=== PATIENT | male | born 1945 | race Caucasian/White ===

== ENCOUNTER 2017-05-08 08:00 | Outpatient (RCR) | payer MEDICARE, OTHER, SELFPAY ==
[2017-04-08 01:23] VITALS: BP 108/62; BP 146/60
[2017-05-08 10:41] VITALS: BP 104/60; BP 162/76
--- NOTE | 2017-05-08 10:42 | CR.ITP_ITS ---
Exercise - Initial Assessment - Stages of Change Stages of Change:: Action - Stress Test Date: 01/21/17 - Exercise Prescription Mode:: Treadmill, Rower, Airdyne, NuStep Angina with exercise?: No - Hypertension Do any of the following apply?: Yes, Medication - Intervention Home Exercise/Activity Goal:: Moderate Exercise 30 min/day x 5 days/wk - Education Goals:: Warm-up, RPE JOHN Scale, S/S, Safe Exercise, Self-Monitoring - Exercise Program Goals Exercise Program Goals: Aerobic Activity >30 min Exercise - 30-day Assessment - Stages of Change Stages of Change:: Action - Exercise Prescription Mode:: Treadmill, Rower, Airdyne, NuStep Frequency (x/week): 3 Duration:: 35 METs - Progression: 0.5-1 MET as tolerated: 3.6 Target Heart Rate:: 113-120 Max HR 90 - Intervention Home Exercise/Activity Goal:: Moderate Exercise 30 min/day x 5 days/wk - Education Goals:: Warm-up, RPE JOHN Scale, S/S, Safe Exercise, Self-Monitoring - Exercise Program Goals Exercise Program Goals: Aerobic Activity >30 min Exercise - 60-Day Assessment - Visit Date of Eval: 04/05/17 - Stages of Change Stages of Change:: Action - Exercise Prescription Mode:: Treadmill, Airdyne, NuStep Frequency (x/week): 3 Duration:: 30 min METs: 5.5 Target Heart Rate:: 113-120 Max HR 114 - Hypertension Medication Changes:: No - Intervention Home Exercise/Activity Goal:: Moderate Exercise 30 min/day x 5 days/wk - Education Goals:: Warm-up, RPE JOHN Scale, S/S, Safe Exercise, Self-Monitoring Exercise - 90-Day Assessment - Visit Date of Eval: 05/08/17 Session #:: 31 - Stages of Change Stages of Change:: Action - Exercise Prescription Mode:: Treadmill, Airdyne, NuStep Frequency (x/week): 3 Duration:: 30 min METs: 8.0 Target Heart Rate:: 120-128 max HR 117 - Hypertension Resting Blood Pressure:: 104/60 Peak Exercise Blood Pressure:: 162/76 Medication Changes:: No - Intervention Home Exercise/Activity Goal:: Moderate Exercise 30 min/day x 5 days/wk - Education Goals:: Warm-up, RPE JOHN Scale, S/S, Safe Exercise, Self-Monitoring Exercise - Final/Discharge - Hypertension Do any of the following apply?: Yes, Medication Nutrition - Initial Assessment - Program Goals Nutrition Program Goals: LDL <70. Total Cholesterol <200. HDL >45. Triglycerides <150. HgbA1C <7%. BMI <25 - Stages of Change Stages of Change:: Action - Diabetes Diabetes:: No Non-Insulin Dependent?: No - Weight Management Body Fat %:: 29.58 Total Score:: 3 - Intervention Referral to dietitian:: No Referral to Diabetic Clinic:: No Will attend diet classes:: No - Education Gave educational materials for:: Healthy eating Nutrition - 30-Day Assessment - Program Goals Nutrition Program Goals: LDL <70. Total Cholesterol <200. HDL >45. Triglycerides <150. HgbA1C <7%. BMI <25 - Stages of Change Stages of Change:: Action - Lipids Has the patient seen the dietitian?: No - Diabetes Diabetes:: No Non-Insulin Dependent?: No - Intervention Referral to dietitian:: No Referral to Diabetic Clinic:: No Will attend diet classes:: No - Education Attended class for:: Healthy eating Nutrition - 60-Day Assessment - Program Goals Nutrition Program Goals: LDL <70. Total Cholesterol <200. HDL >45. Triglycerides <150. HgbA1C <7%. BMI <25 - Visit Date of Eval: 04/05/17 - Stages of Change Stages of Change:: Action - Lipids Has the patient seen the dietitian?: No - Diabetes Diabetes:: No Non-Insulin Dependent?: No - Intervention Referral to dietitian:: No Referral to Diabetic Clinic:: No Will attend diet classes:: No - Education Attended class for:: Healthy eating Nutrition - 90-Day Assessment - Program Goals Nutrition Program Goals: LDL <70. Total Cholesterol <200. HDL >45. Triglycerides <150. HgbA1C <7%. BMI <25 - Visit Date of Eval: 05/08/17 - Stages of Change Stages of Change:: Action - Lipids Has the patient seen the dietitian?: No - Diabetes Diabetes:: No Non-Insulin Dependent?: No - Weight Management Weight:: 96.388 kg - Intervention Referral to dietitian:: No Referral to Diabetic Clinic:: No Will attend diet classes:: No - Education Attended class for:: Healthy eating Nutrition - Final Assessment - Program Goals Nutrition Program Goals: LDL <70. Total Cholesterol <200. HDL >45. Triglycerides <150. HgbA1C <7%. BMI <25 - Diabetes Diabetes:: No Non-Insulin Dependent?: No - Weight Management Body Fat %:: 29.58 Total Score:: 3 - Intervention Referral to dietitian:: No Referral to Diabetic Clinic:: No Will attend diet classes:: No Tobacco - Initial Assessment - Program Goals Tobacco Program Goals: Complete smoking cessation. Attend education classes. Improve Knowledge Test score - Stage of Change Stages of Change:: Action - Learning Barriers Learning Barriers: Vision - wears corrective lenses, Ready to Learn Total Score:: 9 - Family Support Do you have family support?: Yes - Tobacco Use Tobacco Use: Non-smoker - former smoker quit back in 1975. Do you use smokeless tobacco?: No - Intervention Smoking Cessation Referral:: No Individual Education/Counseling:: No Education Schedule Given:: Yes - Education Gave educational material for:: Coronary artery disease, Risk factors, Sexuality , Medical compliance, Cardiac A&P, Angina signs & symptoms Tobacco - 30-Day Assessment - Program Goals Tobacco Program Goals: Complete smoking cessation. Attend education classes. Improve Knowledge Test score - Stage of Change Stages of Change:: Action - Learning Barriers Learning Barriers: Participates in education - Family Support Do you have family support?: Yes - Tobacco Use Tobacco Use: Non-smoker Do you use smokeless tobacco?: No - Intervention Smoking Cessation Referral:: No Individual Education/Counseling:: No Education Schedule Given:: Yes - Education Attended class for:: Coronary artery disease, Risk factors, Sexuality, Medical compliance, Cardiac A&P, Angina signs & symptoms Tobacco - 60-Day Assessment - Program Goals Tobacco Program Goals: Complete smoking cessation. Attend education classes. Improve Knowledge Test score - Stage of Change Stages of Change:: Action - Learning Barriers Learning Barriers: Participates in education - Family Support Do you have family support?: Yes - Tobacco Use Tobacco Use: Non-smoker Do you use smokeless tobacco?: No - Intervention Smoking Cessation Referral:: No Individual Education/Counseling:: No Education Schedule Given:: Yes - Education Attended class for:: Coronary artery disease, Risk factors, Sexuality, Medical compliance, Cardiac A&P, Angina signs & symptoms Tobacco - 90-Day Assessment - Program Goals Tobacco Program Goals: Complete smoking cessation. Attend education classes. Improve Knowledge Test score - Stage of Change Stages of Change:: Action - Learning Barriers Learning Barriers: Participates in education - Family Support Do you have family support?: Yes - Tobacco Use Tobacco Use: Non-smoker Do you use smokeless tobacco?: No - Intervention Smoking Cessation Referral:: No Individual Education/Counseling:: No Education Schedule Given:: Yes - Education Attended class for:: Coronary artery disease, Risk factors, Sexuality, Medical compliance, Cardiac A&P, Angina signs & symptoms Tobacco - Final Assessment - Program Goals Tobacco Program Goals: Complete smoking cessation. Attend education classes. Improve Knowledge Test score - Learning Barriers Cardiac Knowledge Test Score:: 9 - Family Support Do you have family support?: Yes - Tobacco Use Tobacco Use: Non-smoker Do you use smokeless tobacco?: No - Intervention Smoking Cessation Referral:: No Individual Education/Counseling:: No Education Schedule Given:: Yes Psychosocial - Initial Assess - Target Goals Target Goals: Assess presence or absence of depression. Using a valid screening tool, maximizes coping skills. Positive support system - Stages of Change Stages of Change:: Action - Psychosocial Test Tool Used:: HANDS Depression Questionnaire Tests Completed: SF - 36 survey completed, Mood Scale Test Self-Efficacy Score:: 9 - Intervention PS - Interventions: Yes Attend Stress Management Classes, Yes Uses Stress Management Skills, No Referral to Mental Health, No Referral to [facility] Case Management, No Referral to Physician - Patient/Program Goal Preventative Medication(s):: Aspirin, JACOB inhibitor, Clopidogrel, Beta srinivas, Statin/lipid - Assistive Devices Assistive Devices:: None Fall Risk Assessed:: Yes Psychosocial - 30-Day Assess - Target Goals Target Goals: Assess presence or absence of depression. Using a valid screening tool, maximizes coping skills. Positive support system - Stages of Change Stages of Change:: Action - Psychosocial Test Tool Used:: HANDS Depression Questionnaire Self-Efficacy Score:: 9 - Patient/Program Goal Preventative Medication(s):: Aspirin, JACOB inhibitor, Clopidogrel, Beta srinivas, Statin/lipid - Assistive Devices Assistive Devices:: None Fall Risk Assessed:: Yes Psychosocial - 60-Day Assess - Target Goals Target Goals: Assess presence or absence of depression. Using a valid screening tool, maximizes coping skills. Positive support system - Stages of Change Stages of Change:: Action - Psychosocial Test Tool Used:: HANDS Depression Questionnaire Self-Efficacy Score:: 9 - Patient/Program Goal Preventative Medication(s):: Aspirin, JACOB inhibitor, Clopidogrel, Beta srinivas, Statin/lipid - Assistive Devices Assistive Devices:: None Fall Risk Assessed:: Yes Psychosocial - 90-Day Assess - Target Goals Target Goals: Assess presence or absence of depression. Using a valid screening tool, maximizes coping skills. Positive support system - Stages of Change Stages of Change:: Action - Psychosocial Test Tool Used:: HANDS Depression Questionnaire Self-Efficacy Score:: 9 - Intervention PS - Interventions: Yes Attend Stress Management Classes, Yes Uses Stress Management Skills, No Referral to Mental Health, No Referral to [facility] Case Management, No Referral to Physician - Education Attended classes for:: Coping techniques, Signs & symptoms of depression, Stress management, Relaxation techniques - Patient/Program Goal Preventative Medication(s):: Aspirin, JACOB inhibitor, Clopidogrel, Beta srinivas, Statin/lipid - Assistive Devices Assistive Devices:: None Fall Risk Assessed:: Yes Psychosocial - Final Assessmen - Target Goals Target Goals: Assess presence or absence of depression. Using a valid screening tool, maximizes coping skills. Positive support system - Psychosocial Test Tool Used:: HANDS Depression Questionnaire Tests Completed: SF - 36 survey completed, Mood Scale Test Self-Efficacy Score:: 9 - Patient/Program Goal Preventative Medication(s):: Aspirin, JACOB inhibitor, Clopidogrel, Beta srinivas, Statin/lipid - Assistive Devices Assistive Devices:: None Fall Risk Assessed:: Yes Patient Health Questionnaire 90-Day Re-eval Assessment 1. Little interest or pleasure in doing things: Not at all 2. Feeling down, depressed, or hopeless: Not at all 3. Trouble falling or staying asleep, or sleeping too much: Not at all 4. Feeling tired or having little energy: Not at all 5. Poor appetite or overeating: Not at all 6. Feeling bad about yourself -- or that you are a failure or have let yourself or your family down: Not at all 7. Trouble concentrating on things, such as reading the newspaper or watching television: Not at all 8. Moving or speaking so slowly that other people could have noticed. Or the opposite - being so fidgety or restless that you have been moving around a lot more than usual: Not at all 9. Thoughts that you would be better off , or of hurting yourself in some way: Not at all Total Score: 0 Self-Efficacy 90-Day Re-eval Assessment We would like to know how confident you are in doing certain activities. Please select your confidence level for:: Select your confidence level for the following using the scale 1-10 where 1 is not at all confident and 10 is totally confident. Your score is the average of all 6 responses. Fatigue: How confident are you that you can keep the fatigue caused by your disease from interfering with the things you want to do? Select Number: 10 Physical Discomfort or Pain: How confident are you that you can keep the physical discomfort or pain of your disease from interfering with the things you want to do? Select Number: 10 Emotional Distress: How confident are you that you can keep the emotional distress caused by your disease from interfering with the things you want to do? Select Number: 10 Other Symptoms or Health Problems: How confident are you that you can keep other symptoms or health problems from interfering with the things you want to do? Select Number: 10 Different Tasks and Activities: How confident are you that you can do the different tasks and activities needed to manage your health condition so as to reduce your need to see a doctor? Select Number: 10 Medication: How confident are you that you can do things other than just taking medication to reduce how much your illness affects your everyday life? Select Number: 10 Total Score:: 10 Cardiac Rehabilitation Goals - Cardiac Rehab Goals Cardiac Rehabilitation Goals: 1. Maintain the individual as the primary focus of care. 2. To improve the patient's quality of life. 3. Identification of cardiac risk factors and provide cardiac risk factor management. 4. Enhance the psychosocial status of the patient. 5. Reconditioning enough to allow the patient to resume customary activities. 6. Control symptoms of cardiac disease - Scale Scale for measuring improvement of personal goals: Enter appropriate number in Comments. 2 = Unchanged. 3 = Slightly Better. 4 = Moderate Improvement. 5 = Met my Goal 90-Day Re-eval Assessment Personal Goals: Discharge Reassessment: Participate in home exercise program - exercising more, Met Goal, Improve muscle strength and endurance - Increased intensity, Goal Met, Improve diet and eating habits (eat healthier) - lifestyle change, eating healthier. Goal Met, Control risk factors (learn risk factor modification) - Ongoing-Learning process.
== END 2017-05-08 23:59 ==
LOC: CR 08:00
PROVIDERS: Family Provider Internal Medicine; PCP Internal Medicine; Visit Provider Internal Medicine Cardiovascular Disease
DX: Z95.5 Presence of coronary angioplasty implant and graft (principal); I25.10 Atherosclerotic heart disease of native coronary artery without angina pectoris; E78.5 Hyperlipidemia, unspecified
CPT/HCPCS: 93798

== ENCOUNTER 2017-05-20 08:00 | Outpatient (RCR) | payer MEDICARE, OTHER, SELFPAY ==
[2017-01-25] VITALS: BP 138/66
[2017-01-25 08:00] VITALS: BP 132/73
[2017-02-14 10:58] VITALS: BMI 29.5
[2017-05-09 00:47] VITALS: BP 104/60; BP 162/76
== END 2017-05-20 09:30 | disposition home or self-care (01) ==
LOC: CR 08:00
PROVIDERS: Family Provider Internal Medicine; PCP Internal Medicine; Visit Provider Internal Medicine Cardiovascular Disease
DX: Z95.5 Presence of coronary angioplasty implant and graft (principal); I25.10 Atherosclerotic heart disease of native coronary artery without angina pectoris; E78.5 Hyperlipidemia, unspecified
CPT/HCPCS: 93798

== ENCOUNTER → 2020-04-27 06:27 | Outpatient (CLI) | payer MEDICARE, SELFPAY ==
[2020-04-19 08:24] VITALS: BMI 30.5
--- NOTE | 2020-04-27 12:54 | STRESSREP ---
Stress Test Report Exercise myocardial perfusion stress test. 75-year-old male with a history of coronary artery disease. Medications aspirin, Plavix, Lipitor. Stress protocol: Resting EKG demonstrates normal sinus rhythm with a rate of 70 bpm normal intervals are noted resting blood pressure is 142/72 mmHg. The patient exercised according to regular Kavin protocol for a total duration of 8 minutes patient completed 2 minutes into stage III of the Kavin protocol. The maximum heart rate attained was 142 bpm which was 96% of maximum predicted heart rate the maximum workload was 10.1 metabolic equivalents. At rest there were no ST or T wave changes noted suggest ischemia at peak exercise upsloping ST changes were noted with no meet the criteria for ischemia. No clinical angina was noted. The peak blood pressure was 182/70 mmHg which was an appropriate rise for exercise. The test was terminated due to leg fatigue. No arrhythmias were noted. Myocardial perfusion protocol. 14.6 mCi of technetium 99m sestamibi was injected at rest. The patient exercised according to regular Kavin protocol for 8 minutes and at peak exercise 44.8 mCi of technetium 99m sestamibi was injected stress images were obtained stress and rest images were reconstructed and compared in the short axis vertical long horizontal long axis. Gated images were also obtained Perfusion SPECT analysis: Review of the stress images demonstrate normal uptake noted in all areas of the myocardium the resting images similarly demonstrate normal uptake of tracer noted in all areas of the myocardium. No areas of reversibility are noted suggest ischemia no previous infarct is noted. Gated SPECT analysis: The gated ejection fraction is 79%. Conclusion: Normal exercise myocardial perfusion stress test with no evidence of ischemia at a high workload. Preserved ejection fraction.
== END ==
PROVIDERS: PCP Internal Medicine; Referring Provider Internal Medicine Cardiovascular Disease; Visit Provider Internal Medicine Cardiovascular Disease
DX: I25.10 Atherosclerotic heart disease of native coronary artery without angina pectoris (principal); Z95.5 Presence of coronary angioplasty implant and graft
CPT/HCPCS: 78452; 93017; A9500; A4216

== ENCOUNTER 2020-05-21 09:01 | Inpatient (IN) | payer MEDICARE, SELFPAY ==
[2020-04-19 08:24] VITALS: BMI 30.5
[2020-05-21] VITALS (10 sets, daily range): BP systolic 124–145; BP diastolic 67–72; PULSE 66–76; RESP 17–18; TEMP 36.9–38.2; O2SAT 91–97; BMI 29.2
--- NOTE | 2020-05-21 09:29 | EKG12_ITS ---
Test Reason : SOB Blood Pressure : / mmHG Vent. Rate : 074 BPM Atrial Rate : 074 BPM P-R Int : 172 ms QRS Dur : 092 ms QT Int : 396 ms P-R-T Axes : 055 030 027 degrees QTc Int : 439 ms Normal sinus rhythm Normal ECG Confirmed by ROSEANNA SEN, WILLIAM ([id number]), general expeditor CHERYL GARCIA ([id number]) on 05/23/2020 11:51:29 A M Referred By: BHAVIN Confirmed By:EFRAIN CONDON MD
--- NOTE | 2020-05-21 09:29 | RAD_ITS ---
STUDY: X-RAY CHEST REASON FOR EXAM: Male, 75 years old. Worsening shortness of breath TECHNIQUE: 2 AP portable views COMPARISON: 01/23/2017 FINDINGS: EKG leads overlie the chest Lungs are mildly hyperexpanded, when compared to the previous study, there has been development of interstitial opacifications in the mid and lower lung chambers. This could be due to multifocal pneumonitis, pulmonary vascular congestion or Covid pneumonia. Stable granulomatous calcifications, stable 2.3 center calcification in the left paravertebral region Normal size heart. Normal mediastinum and vinay. Normal visualized pulmonary arteries. Normal visualized aortic arch and descending thoracic aorta. There are diffuse degenerative changes of the visualized thoracic spine. There is degenerative osteoarthritis of the bilateral shoulders. There is no demonstrated abnormality of the visualized soft tissue structures of the upper abdomen. RAD/Chest 1 View (Portable) IMPRESSION: Moderately hyperexpanded lungs with chronic interstitial changes, and superimposed interstitial opacifications in the mid and lower lung chambers. Differential as described above. Electronically Signed: Brock Manuel MD at 11:31 EST , Service support ,
[2020-05-21] MEDS: Acetaminophen 325 MG Tablet 650 MG PO (09:51)
[2020-05-21] MEDS: 0.9% Normal Saline 1,000 ML 150 ML IV (09:52)
[2020-05-21 10:12] LABS: Absolute Lymphocyte Count 0.59 X10^3/uL (0.83-4.51); Absolute Neutrophil Count 4.7 X10^3/uL (2.0-7.7); Basophil# 0.01 X10^3/uL; Basophil% 0.2 % (0-1); Hematocrit 39.4 % (40-54); Hemoglobin 13.7 g/dL (13.0-16.5); Lymphocyte # 0.59 X10^3/ul (4.0); Lymphocyte % 9.9 % (19-41); Mean Corp Hgb Conc 34.8 g/dL (32-36); Mean Corpuscular Hgb 31.8 pg (27.0-32.0); Mean Corpuscular Volume 91.4 fL (80-94); Mean Platelet Vol. 11.4 fl (6.2-12.0); Monocyte# 0.62 X10^3/uL; Monocyte% 10.4 % (0-10); NRBC Flagged by Analyzer 0 % (0-5); Neutrophil # 4.69 X10^3/uL (2.7-7.7); POSITIVE DIFFERENTIAL YES; Platelet Count 142 K/mm3 (150-450); RBC Distribution Width CV 11.9 % (11.6-14.6); RBC Distribution Width SD 40.2 fl (35.1-43.9); Red Blood Count 4.31 M/mm3 (4.6-6.2); White Blood Count 5.9 K/mm3 (4.4-11.0)
[2020-05-21 10:31] LABS: Anion Gap 6 (5-15); BUN 20 mg/dL (7-18); BUN/Creat Ratio 20.5 RATIO (10-20); Calcium,Total 8.4 mg/dL (8.5-10.1); Chloride 99 mmol/L (98-107); Creatinine, Serum 0.98 mg/dL (0.70-1.30); EST Glomerular Filtration Rate 80 mL/min (>60); Est Glom Filt Rate - Afr Amer 97 mL/min (>60); Glucose 97 mg/dL (74-106); Potassium 3.8 mmol/L (3.5-5.1); Sodium Level 133 mmol/L (136-145)
[2020-05-21 10:34] LABS: Differential Indicated SCAN CRITERIA MET
[2020-05-21 10:47] LABS: Lactic Acid 1.5 mmol/L (0.4-1.9)
[2020-05-21 11:01] LABS: D-Dimer Quantitative (DVT/PE) 0.67 FEU/ug/m (0.27-0.49)
[2020-05-21 11:04] LABS: Differential Comment SCANNED
--- NOTE | 2020-05-21 12:28 | ED.DCSUM_ITS ---
- ER Visit Summary Date of Service: 05/21/20 Chief Complaint: [Shortness of breath and fever] History of Present Illness: The patient is a 75 M [presents to the emergency department complaint of fever and shortness of breath. Patient started having symptoms on May 12. He was diagnosed with COVID-19 on May 15. Patient increasingly short of breath since yesterday. No significant cough. He denies any chest pain. He does complain of exertional dyspnea. Patient does complain of nausea, headache, and body aches. Patient has history of coronary artery disease as well as hypertension.] Physical Examination: [HEENT-PERRLA, EOMI. Cranial nerves II through XII grossly intact. TMs clear. Mucous membranes moist. No adenopathy. Cardiovascular-regular rate and rhythm without murmur or ectopy Lungs-clear to auscultation, chest wall stable without crepitus or subcu emp hysema Abdomen-normoactive bowel sounds, soft, nontender, no rebound or rigidity, no peritoneal signs. Extremities-intact ?4, normal range of motion, normal pulses, atraumatic] Test Results: [EKG obtained arrival shows sinus rhythm with a ventricular rate of 74 bpm with no acute ST segment changes. CBC with differential showed a white count 5.9, hemoglobin 13.7, hematocrit 39, plates 142. Chemistries unremarkable. Troponin less than 0.015. D-dimer was 0.67 and when corrected for age is considered normal. Chest x-ray 1 view obtained read by myself as bilateral infiltrates. Radiology in agreement.] Emergency Department Course and Treatment: [IV line established on arrival. Patient placed on surveillance system monitor. Patient was ambulated and with ambulation pulse ox drops to 88%.] Patient placed on 2 L nasal cannula O2. Treatment Plan: [Admit] Disposition: [Admit] Impression: [Covid pneumonia Hypoxemia] This note was generated with [employer] dictation software. It may contain incorrect words, spelling, and punctuation that were not noted in review of the chart prior to signing ED Disposition - Plan for ED Patient: Referrals: Bg Gold MD [Primary Care Provider] -
[2020-05-21 13:23] LABS: AST(SGOT) 50 U/L (15-37); Alanine Aminotransfer ALT/SGPT 54 U/L (16-61); Albumin, Serum 3.1 g/dL (3.2-5.0); Alkaline Phosphatase 51 U/L (45-117); Bilirubin, Direct 0.17 mg/dL (0.00-0.30); Globulin 4.1 g/dL (2.2-4.2); Protein, Total 7.2 g/dL (6.4-8.2)
--- NOTE | 2020-05-21 13:40 | CASEMGMT ---
LYNN MIMS ASSESSMENT COVID-19 +. Had COVID testing done 05/15 @ [facility]gent [facility] in [place]. LYNN MIMS placed call to pt's room for initial transition planning/care coordination assessment. LYNN MIMS introduced self and role at [facility]. Pt voices understanding and consents to assessment at this time. Pt is A/O at this time and answers all questions appropriately. Care providers, pharmacy, and demographics verified/updated at this time. 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 Prescription Benefit: Yes Living Will/HPOA: States does not have LW or HCPOA . Educated patient that, if patient so chooses, can come back to [facility] and meet with a SW as an outpatient to complete health care advanced directives. Patient expresses understanding. LNOK: Living Arrangements: Lives w/his in ranch-style home w/2 steps to enter. Independent. Pt's has not had any symptoms of COVID. Pt states he and his have been staying in separate rooms during the day and using separate bathrooms, although they have been sleeping in the same bed at night. Pt educated that they should be sleeping separately throughout the duration of time he is to quarantine/self-isolate and that they should also be wearing masks when they are around each other. Pt voices understanding. Pt states they have masks, hand house servant, and disinfectants. They have a sufficient supply of groceries for now and have someone that can get more if needed. Transportation: Pt states drives self and states no transportation concerns at this time. also drives. DME: Denies using any DME and denies needs. Pt may need Home O2 @ discharge. Verbal review of local DME companies provided. Pt denies preference. He was made aware [facility] is affiliated with [facility] and he is agreeable to them. HHC/SNF: No history of either. Denies need for HHC. Pt wishes to return home and states has no concerns with going home at time of discharge. CM to follow for home oxygen needs and any further discharge planning/needs. Pt voices no further concerns/needs at this time. Advised pt to ask for CM if any further questions/concerns/needs arise. Voices understanding. PLAN: Home w/spousal support and discharge plans in place. Follow for any Home O2 needs @ discharge. Bryce sheet placed on chart with instructions for staff for Home O2 set-up if he qualifies for it. Janina BSN RN CM
[2020-05-21] MEDS: dexAMETHasone 2 MG TABLET 6 MG PO (13:46)
[2020-05-21] MEDS: Enoxaparin 40 MG/0.4 ML Syringe SC ×2 (13:47→20:58)
--- NOTE | 2020-05-21 16:58 | PCM.HP.STD ---
Problem List (1) Shortness of breath Status: Acute (2) COVID-19 virus infection Status: Acute History of Present Illness Date of Admission: 05/21/20 Chief Complaint: COVID-19 infection, shortness of breath The patient is a 75 year old M who was seen in the emergency room at [facility] with chief complaint of shortness of breath positive Covid test recently as an outpatient. Patient states he felt ill starting May 12, 2020, he got tested for Covid and was positive for Covid on 05/15/2020. Complains of a headache today, he stated that when he first got sick last week he lost his sense of smell and taste. Patient also had a temp of 100.7 in the ER. Work-up in the emergency room included a chest x-ray which showed changes indicative of pneumonia, patient's white blood cell count was normal at 5.9, D-dimer was elevated at 0.67, BUN was 20 and PCR for COVID-19 was positive. Patient required 2 L via nasal cannula on ambulation to maintain his pulse ox above 90%. Patient was admitted to [place] [address] for COVID-19 pneumonia with hypoxia. He will receive remdesivir and dexamethasone. Patient has a history of coronary artery disease and stent placement. Past Medical History Past Medical History (Chronic Problems): Chronic Problems (Last Reviewed 04/19/20 @ 09:[address] Roddy Lawrence MD) Atherosclerosis of coronary artery of [place] heart without angina pectoris (Chronic) Hyperlipidemia (Chronic) Medical History: Medical History (Last Reviewed 04/19/20 @ 09:[address] Roddy Lawrence MD) Atherosclerosis of coronary artery of [place] heart without angina pectoris (Chronic) I25.10 History of non-ST elevation myocardial infarction (NSTEMI) (Resolved) Onset Date: 01/27/07 I25.2 Hyperlipidemia (Chronic) E78.5 Palpitations (Resolved) R00.2 Allergies ampicillin Allergy (Severe, Verified 05/21/20 09:02) Hives Home Medications: Ambulatory Orders Medication Instructions Recorded Aspirin [Aspirin, Baby] 81 mg PO QHS 07/10/13 Clopidogrel Bisulfate [Plavix] 75 mg PO DAILY 07/10/13 Multivitamins,Therapeutic 1 tab PO DAILY 07/10/13 [Multivitamin] Nitroglycerin (INPATIENT USE) 0.4 mg SUBLINGUAL Q5M PRN 07/10/13 [Nitrostat] Atorvastatin Calcium [Lipitor] 80 mg PO QHS 01/23/17 Cholecalciferol (Vitamin D3) 2,000 unit PO DAILY 01/23/17 [Vitamin D3] Ubidecarenone [Co Q-10] 200 mg PO DAILY 01/23/17 metoprolol tartrate 25 mg tablet 25 mg PO BID 04/21/19 omega-3 fatty acids 1,000 mg 1,000 mg PO DAILY 04/21/19 capsule Surgical History: Surgical History (Last Reviewed 04/19/20 @ 09:[address] Roddy Lawrence MD) History of coronary artery stent placement (Resolved) Onset Date: 01/14/17 Z95.5 [id number] LAD w/ 3.0 x 20 mm Taxus Stent and RAYMUNDO-Distal RCA w/ 2.5 x 24 mm Taxus Stent 01/27/2007; MNI-RYD-Ncti LAD w/ 3.0 x 12 mm Resolute Integrity Stent, [id number] RCA w/ 2.5 x 38 mm Synergy Stent 01/14/2017 History of left heart catheterization Onset Date: 01/2017 Z98.890 2006, 07/2013, 01/2017 Surgical History: - - Coronary artery stent placement Psychiatric History: No pertinent psych hx Lives: Spouse/ Significant Other Smoking Status: Former smoker Tobacco Use: Non-smoker Alcohol: None Drugs: None - *Family History Maternal Family History: Family History (Last Reviewed 04/19/20 @ 09:[address] Roddy Lawrence MD) Mother Myocardial infarction Diabetes Brother Hypertension Sister Diabetes Brother CAD (coronary artery disease) Aunt CAD (coronary artery disease) Uncle CAD (coronary artery disease) History Items: Diabetes, Heart Disease Paternal Family History: Family History (Last Reviewed 04/19/20 @ 09:[address] Roddy Lawrence MD) Mother Myocardial infarction Diabetes Brother Hypertension Sister Diabetes Brother CAD (coronary artery disease) Aunt CAD (coronary artery disease) Uncle CAD (coronary artery disease) History Items: Heart Disease Review of Systems Constitutional: Reports: Malaise, Fatigue. Denies: Anorexia, Chills, Fever, Night Sweats, Weakness, Weight Change Eyes: Denies: Cataracts, Conjunctivae Inflammation, Double vision, Drainage HEENT: Denies: Dysphasia, Ear Pain, Eye Pain, Hearing Changes, Nasal bleeding, Nasal Congestion, Post Nasal Drip Cardiovascular: Denies: Chest Pain, Claudication, Chest Pressure, Chest Tightness, Palpitations Respiratory: Reports: Shortness of Breath, Shortness of breath upon exertion. Denies: Cough, Hemoptysis, Pleuritic Pain, Shortness of breath at rest, Sputum production, Wheezing Gastrointestinal: Denies: Abdominal Pain, Constipation, Diarrhea, Hematemesis, Hematochezia, Nausea, Melena, Vomiting Genitourinary: Denies: Dysuria, Frequency, Hematuria, Hesitancy, Nocturia, Retention, Urgency Musculoskeletal: Denies: Back Pain, Foot Pain, Hand Pain, Joint Pain, Joint stiffness, Joint swelling, Joint Tenderness, Leg Pain Skin: Denies: Dryness, Jaundice, Pruritis, Rash Neurological: Denies: Blurred vision, Double vision, Slurred speech, Difficulty swallowing, Focal weakness, Numbness, Tingling Psychiatric: Denies: Anxiety, Depression, Homicidal Ideations, Suicidal Ideations Endocrine: Denies: Change in Body Habitus, Heat/ Cold Intolerance, Polydipsia, Polyuria Hematologic/ Lymphatic: Denies: Adenopathy, Anemia, Easy Bruising, Easy Bleeding, Petechiae, Purpura VTE Information - Inpt Only VTE Present on Admission: No VTE Mechan Device Prophylaxis: None VTE Pharm Prophylaxis ordered?: Yes - Physical Exam Vitals/I&O's: Vital Signs Temp Pulse Resp BP Pulse Ox 98.4 F 66 18 124/67 H 96 05/21/20 13:37 05/21/20 13:37 05/21/20 13:37 05/21/20 13:37 05/21/20 14:43 Oxygen Flow Rate (L/min) 2 Oxygen Delivery Method Nasal Cannula Weight: 94.9 kg Body Mass Index (BMI) 29.2 Intake and Output for Last 24 Hours 05/19/20 05/20/20 05/21/20 23:59 23:59 23:59 Intake Total 1000 / 1000 Balance 1000 / 999 General: Alert, Oriented x3, Cooperative, No apparent distress, Well developed, Well nourished HEENT: Atraumatic, PERRLA, EOMI, Normocephalic Oral: Moist Mucosa Neck: Supple, No JVD, Negative Carotid Bruits, Trachea Midline, Thyroid Normal Size and Texture Lungs: Clear to auscultation, Normal air movement, No rhonchi, No wheeze, No rales Cardiovascular: Regular rate, Regular Rhythm, Normal S1, Normal S2, No murmurs, PMI Normal, No rub noted, No Gallop Abdomen: Bowel Sounds Present, Soft, Non Tender, Non-Distended, No hernias noted Extremities: No clubbing, No cyanosis, No edema, Capillary Refill Less than 3 Seconds Skin: No rashes, No breakdown Musculoskeletal: No Tenderness to Palpation of Joints or Extremities Neurological: Cranial nerves II-XII grossly intact, Neuro grossly intact, Motor Exam 5/5 strength throughout, Sensory exam intact to light touch and pain, Coordination normal Psych/Mental Status: Normal Affect, Appropriate, Alert and oriented to time, place, person, mood and affect Laboratory Results 05/21/20 09:50: WBC 5.9, RBC 4.31 L, Hgb 13.7, Hct 39.4 L, MCV 91.4, MCH 31.8, MCHC 34.8, RDW Std Deviation 40.2, RDW Coeff of Andi 11.9, Plt Count 142 L, MPV 11.4, Immature Gran % (Auto) 0.500, Neut % (Auto) 79.0 H, Lymph % (Auto) 9.9 L, Motley % (Auto) 10.4 H, Eos % (Auto) 0.0, Baso % (Auto) 0.2, Absolute Neuts (auto) 4.7, Absolute Lymphs (auto) 0.59 L, Nucleated RBC % 0, Differential Comment SCANNED 05/21/20 09:50: D-Dimer Quant (PE/DVT) 0.67 H* 05/21/20 09:50: Sodium 133 L, Potassium 3.8, Chloride 99, Carbon Dioxide 28.0, Anion Gap 6, BUN 20 H, Creatinine 0.98, Estim Creat Clear Calc 71.50, Est GFR (MDRD) Af Amer 97, Est GFR (MDRD) Non-Af 80, BUN/Creatinine Ratio 20.5 H, Glucose 97, Calcium 8.4 L, Troponin I < 0.015 05/21/20 09:50: Lactic Acid 1.5 05/21/20 09:50: Alkaline Phosphatase Cancelled 05/21/20 09:50: Total Bilirubin 0.70, Direct Bilirubin 0.17, AST 50 H, ALT 54, Alkaline Phosphatase 51, Total Protein 7.2, Albumin 3.1 L, Globulin 4.1 05/21/20 11:59: COVID-19 (ANA LAURA) Detected Current Medications Aspirin (Aspirin 81 Mg Tab.Chew) 81 mg PO DAILY [facility] Atorvastatin Calcium (Atorvastatin Calcium 80 Mg Tablet) 80 mg PO QHS [facility] Cholecalciferol (Cholecalciferol (Vit D3) 1,000 Unit (25mcg)) 2,000 unit PO DAILY [facility] Clopidogrel Bisulfate (Clopidogrel Bisulfate 75 Mg Tablet) 75 mg PO DAILY [facility] Dexamethasone (Dexamethasone 2 Mg Tablet) 6 mg PO DAILY [facility] Enoxaparin Sodium (Enoxaparin 40 Mg/0.4 Ml Syringe) 40 mg SC BID [facility] Last Admin: 05/21/20 13:47 Dose: 40 mg Documented by: Remdesivir 100 mg/ Sodium (Chloride) 250 mls @ 125 mls/hr IV DAILY [facility] Stop: 05/25/20 11:59 Metoprolol Tartrate (Metoprolol Tartrate 25 Mg Tablet) 25 mg PO BID [facility] Sodium Chloride (0.9% Saline Lock 10 Ml Syringe) 10 - 40 ml IV UD PRN PRN Reason: SALINE FLUSH Assessment/Plan All Active Problems (Last Reviewed 04/19/20 @ 09:[address] Roddy Lawrence MD) Shortness of breath (Acute) COVID-19 virus infection (Acute) History of coronary artery stent placement (Resolved 01/14/17) History of non-ST elevation myocardial infarction (NSTEMI) (Resolved 01/27/07) Palpitations (Resolved) #1 COVID-19 pneumonia-patient was admitted to [facility], he will have IV remdesivir and be placed on oral dexamethasone #2 hypoxia secondary to #1-patient's pulse ox will be monitored, currently he is on 2 L of oxygen. #3 coronary artery disease-stable at this time #4 hyperlipidemia-patient will remain on his home medication Inpatient E&M: 27130 Init Hosp L3
[2020-05-21] MEDS: 0.9% Saline Lock 10 ML Syringe IV (17:45)
[2020-05-21] MEDS: Metoprolol Tartrate 25 MG Tablet PO (20:58)
[2020-05-21] MEDS: Atorvastatin Calcium 80 MG Tablet PO (20:58)
--- NOTE | 2020-05-21 21:25 | PCS.PANDOC ---
PANDEMIC DOCUMENTATION INITIATED: Date: 05/21/20 Time: 13:29
[2020-05-22 02:48] VITALS: BP 116/71; PULSE 65; RESP 18; TEMP 37.1; O2SAT 96
[2020-05-22] MEDS: Ibuprofen 400 MG Tablet PO (04:13)
[2020-05-22 05:56] LABS: Hematocrit 37.1 % (40-54); Hemoglobin 12.5 g/dL (13.0-16.5); Mean Corp Hgb Conc 33.7 g/dL (32-36); Mean Corpuscular Hgb 31.4 pg (27.0-32.0); Mean Corpuscular Volume 93.2 fL (80-94); Platelet Count 151 K/mm3 (150-450); RBC Distribution Width CV 11.9 % (11.6-14.6); RBC Distribution Width SD 40.3 fl (35.1-43.9); Red Blood Count 3.98 M/mm3 (4.6-6.2); White Blood Count 6.1 K/mm3 (4.4-11.0)
[2020-05-22 06:14] VITALS: BP 122/73; PULSE 69; RESP 18; TEMP 37; O2SAT 95
[2020-05-22 06:22] LABS: ALB/GLOB Ratio 0.7 RATIO (0.9-2.4); AST(SGOT) 45 U/L (15-37); Alanine Aminotransfer ALT/SGPT 48 U/L (16-61); Albumin, Serum 2.7 g/dL (3.2-5.0); Alkaline Phosphatase 58 U/L (45-117); Anion Gap 7 (5-15); BUN 21 mg/dL (7-18); BUN/Creat Ratio 25.1 RATIO (10-20); Calcium,Total 8.3 mg/dL (8.5-10.1); Chloride 104 mmol/L (98-107); Creatinine, Serum 0.84 mg/dL (0.70-1.30); EST Glomerular Filtration Rate 96 mL/min (>60); Est Glom Filt Rate - Afr Amer 116 mL/min (>60); Estimated Creatinine Clearance 83.42 ml/min; Globulin 3.8 g/dL (2.2-4.2); Glucose 93 mg/dL (74-106); Potassium 4.1 mmol/L (3.5-5.1); Protein, Total 6.5 g/dL (6.4-8.2); Sodium Level 138 mmol/L (136-145)
[2020-05-22 08:05] VITALS: BP 131/72; PULSE 61; RESP 16; TEMP 36.8; O2SAT 97
[2020-05-22 08:10] VITALS: PULSE 61
[2020-05-22] MEDS: Enoxaparin 40 MG/0.4 ML Syringe SC (08:10)
[2020-05-22] MEDS: Metoprolol Tartrate 25 MG Tablet PO (08:10)
[2020-05-22] MEDS: Aspirin 81 MG TAB.CHEW PO (08:10)
[2020-05-22] MEDS: dexAMETHasone 2 MG TABLET 6 MG PO (08:10)
[2020-05-22] MEDS: Clopidogrel Bisulfate 75 MG Tablet PO (08:10)
--- NOTE | 2020-05-22 11:21 | PCM.DC ---
- Discharge Diagnoses Current Active Problems: Current Active and Chronic Problems (Last Reviewed 04/19/20 @ 09:[address] Roddy Lawrence MD) Shortness of breath (Acute) COVID-19 virus infection (Acute) You will use the following diet at home:: No restrictions Your food should be the consistency of: Regular Your liquids should be the consistency of: Regular/Thin Discharge Activity: Return to Normal Activity Weight Bearing Status: Full weight bearing Additional Instructions: Quarantine for 10 days from your first symptom Allergies/Adverse Reactions: Allergies ampicillin Allergy (Severe, Verified 05/21/20 09:02) Hives Medications to take at Discharge Aspirin [Aspirin, Baby] 81 mg PO QHS 07/10/13 Clopidogrel Bisulfate [Plavix] 75 mg PO DAILY 07/10/13 Multivitamins,Therapeutic [Multivitamin] 1 tab PO DAILY 07/10/13 Nitroglycerin (INPATIENT USE) [Nitrostat] 0.4 mg SUBLINGUAL Q5M PRN 07/10/13 Atorvastatin Calcium [Lipitor] 80 mg PO QHS 01/23/17 Cholecalciferol (Vitamin D3) [Vitamin D3] 2,000 unit PO DAILY 01/23/17 Ubidecarenone [Co Q-10] 200 mg PO DAILY 01/23/17 metoprolol tartrate 25 mg tablet 25 mg PO BID 04/21/19 omega-3 fatty acids 1,000 mg capsule 1,000 mg PO DAILY 04/21/19 dexAMETHasone [Dexamethasone] 6 mg PO DAILY #24 tab 05/22/20 The following prescriptions were given: dexAMETHasone [Dexamethasone] 6 mg PO DAILY #24 tab Transmission Status: Pending to [facility] Primary Care Physician: Bg Gold MD [Primary Care Provider] - Please follow up with your Primary Care Physician in: in 2 weeks Test Results: Test results from this visit will be discussed in further detail at your follow-up appointment, if applicable.
[2020-05-22 11:49] VITALS: O2SAT 93; O2SAT 95
--- NOTE | 2020-05-23 09:57 | CASEMGMT ---
LYNN CM DC PHONE CALL DC DATE: 03/21/21 DC Diagnosis: COVID DC Disposition: Home Pt called to hospital this am requesting information be faxed to MD in [place] fax: ; Ph: . [facility] faxed. Reviewed dc instructions with patient. He will be f/u with Dr. Gold and has his medications. No care concerns, he states he is feeling improved. No care improvement suggestions. Hernan HARRISN RN ACM
--- NOTE | 2020-05-23 19:50 | DS.PCM_ITS ---
Discharge Date and Diagnosis - Problem List Patient Problems: Active and Suspected Problems (Last Reviewed 04/19/20 @ 09:[address] Roddy Lawrence MD) Shortness of breath (Acute) COVID-19 virus infection (Acute) Date of Admission: 05/21/20 Date of Discharge: 05/22/20 - Primary Discharge Diagnosis Acute Problems: Active Problems (Last Reviewed 04/19/20 @ 09:[address] Roddy Lawrence MD) #1 COVID-19 pneumonia #2 hypoxia secondary to #1 #3 coronary artery disease #4 hyperlipidemia - Secondary Discharge Diagnosis Chronic Problems: Chronic Problems (Last Reviewed 04/19/20 @ 09:[address] Roddy Lawrence MD) Atherosclerosis of coronary artery of [place] heart without angina pectoris (Chronic) Hyperlipidemia (Chronic) Hospital Course and Treatment Operations: None Procedures: None Summary of Care Provided: The patient is a 75 year old M seen in the emergency room at [facility] with chief complaint of increased shortness of breath, his brother had just been diagnosed few days ago with COVID-19, he got a COVID-19 test last week and it was positive. Patient is been feeling fatigued. Work-up in the emergency room included a chest x-ray which showed chronic interstitial changes and superimposed interstitial opacifications in the mid and lower lung chambers. Patient's white blood cell count was normal, D-dimer was minimally elevated. Patient's BUN was minimally elevated. Patient required low-flow supplemental oxygen to maintain his pulse ox above 90%. Patient was admitted to [place] [address], he was placed on dexamethasone and remdesivir, patient's medical status improved over the next 48 hours. On 05/22/2020, patient was seen and examined: On examination he appeared in good health and spirits. Vital signs as documented. Skin warm and dry and without overt rashes. Neck without JVD, neck was supple, trachea midline, thyroid was normal. Lungs clear bilaterally, normal air movement was noted. Heart exam notable for regular rhythm, normal sounds and absence of murmurs, rubs or gallops. Abdomen unremarkable and without evidence of organomegaly, masses, or a bdominal aortic enlargement. Bowel sounds are present, abdomen is not distended. Extremities nonedematous, no cyanosis was noted, no clubbing was noted. Neuro: Cranial nerves II through XII are grossly intact, no focal motor deficits were noted, sensation to light touch and pinprick intact, motor exam 5/5 throughout. Psych: Patient is alert and oriented x3, he does not appear anxious or depressed, he does not appear agitated. Patient appears stable for discharge on 05/22/2020. He did not require home O2. Patient Problems: Active and Suspected Problems (Last Reviewed 04/19/20 @ 09:[address] Roddy Lawrence MD) Shortness of breath (Acute) COVID-19 virus infection (Acute) - Physical Exam Vitals/I&O's: Vital Signs Temp Pulse Resp BP Pulse Ox 98.2 F 61 16 131/72 H 95 05/22/20 08:05 05/22/20 08:10 05/22/20 08:05 05/22/20 08:05 05/22/20 11:49 Oxygen Flow Rate (L/min) [ 0 AMBULATING on Room Air] Oxygen Flow Rate (L/min) [At 0 REST on Room Air] Oxygen Flow Rate (L/min) 2 Oxygen Delivery Method Nasal Cannula Weight: 94.9 kg Body Mass Index (BMI) 29.2 Intake and Output for Last 24 Hours 05/21/20 05/22/20 05/23/20 23:59 23:59 23:59 Intake Total 2089 / 2089 490 / 490 Output Total 350 / 350 Balance 2089 140 / 140 Microbiology Past 72 Hours 05/21/20 09:50 Blood Culture (Wb) - Left Hand Blood Culture - Preliminary No growth in 48 hours. 05/21/20 09:50 Blood Culture (Wb) - Right Forearm Blood Culture - Preliminary No growth in 48 hours. Discharge Activity: Return to Normal Activity Weight Bearing Status: Full weight bearing Home Medications: Medications to take at Discharge Aspirin [Aspirin, Baby] 81 mg PO QHS 07/10/13 Clopidogrel Bisulfate [Plavix] 75 mg PO DAILY 07/10/13 Multivitamins,Therapeutic [Multivitamin] 1 tab PO DAILY 07/10/13 Nitroglycerin (INPATIENT USE) [Nitrostat] 0.4 mg SUBLINGUAL Q5M PRN 07/10/13 Atorvastatin Calcium [Lipitor] 80 mg PO QHS 01/23/17 Cholecalciferol (Vitamin D3) [Vitamin D3] 2,000 unit PO DAILY 01/23/17 Ubidecarenone [Co Q-10] 200 mg PO DAILY 01/23/17 metoprolol tartrate 25 mg tablet 25 mg PO BID 04/21/19 omega-3 fatty acids 1,000 mg capsule 1,000 mg PO DAILY 04/21/19 dexAMETHasone [Dexamethasone] 6 mg PO DAILY #24 tab 05/22/20 Following Prescriptions Were Given to Patient: dexAMETHasone [Dexamethasone] 6 mg PO DAILY #24 tab Transmission Status: Received by [facility] Primary Care Physician: Bg Gold MD [Primary Care Provider] - Please follow up with your Primary Care Physician in: in 2 weeks Disposition: Home Minutes spent on discharge:: 31 Patient Condition:: Stable Medical Necessity - Tobacco Use Smoking Status: Former smoker Tobacco Use: Non-smoker Meaningful Use Info Meaningful Use Diagnoses (Choose all that apply): None applicable Inpatient E&M: [id number] [facility]
== END 2020-05-22 13:35 | disposition home or self-care (01) | DRG 177 ==
LOC: ED 10:23 → MS2 12:38
PROVIDERS: Admitting Provider Internal Medicine; Emergency Provider Emergency Medicine; PCP Internal Medicine; Visit Provider Internal Medicine
DX: U07.1 COVID-19 (principal); J12.82 Pneumonia due to coronavirus disease 2019; R09.02 Hypoxemia; I25.10 Atherosclerotic heart disease of native coronary artery without angina pectoris; E78.5 Hyperlipidemia, unspecified; Z95.5 Presence of coronary angioplasty implant and graft; Z79.02 Long term (current) use of antithrombotics/antiplatelets; Z87.891 Personal history of nicotine dependence
CPT/HCPCS: 36415; 71045; 80048; 80053; 80076; 83605; 84484; 85025; 85027; 85379; 87040; 87635; 93005; 99285; J7030; J7050; A4216; U0002